=== PATIENT | male | born 1950 | race Caucasian/White ===

== ENCOUNTER 2016-07-27 13:22 | Emergency (ER) | payer OTHER ==
[~2016-07-27] VITALS: Ht 175.3 cm; Wt 81.0 kg
[~2016-07-27 13:22] MED LIST: AMLO-147 PO; ASPI-664 PO; BENA40TA41 PO; HYDR50TA3 PO
[2016-07-27 13:34] VITALS: Ht 175.3 cm; Wt 81.0 kg
--- NOTE | 2016-07-27 15:23 | ERA ---
ER Documentation Chief Complaint Date/Time DATE: 07/27/16 TIME: 15:16 Chief Complaint LT FOREARM WOUND AND PAIN WITH SWELLING FROM CAT BITE HPI This is an otherwise healthy 66-year-old male who is presenting 10 hours status post cat bite to left arm. The bite was initiated after the tech as scared after a large noise from unspecified cause. The cat is known to the patient and has not been acting differently lately. Patient states that he try to contact his PCP but they would not see him to later tonight. Patient describes the pain as 3-4 out of 10. Patient is controlled bleeding with gauze. Patient denies any medical conditions or any current medications. No recent antibiotic use or hospitalizations. Patient has no other complaints and describes no other associated manifestations. Vaccination status unknown. ROS All systems reviewed and are negative except as per history of present illness. Medications Home Meds Active Scripts Amoxicillin/Potassium Clav (Amox-Clav 500-125 mg Tablet) 500-125 mg Tab, 1 TAB PO Q8 for 7 Days, #21 TAB Prov:FARHAD JOHNS PA-C 07/27/16 Reported Medications Amlodipine Besylate* (Amlodipine Besylate*) 10 Mg Tablet, 10 MG PO DAILY, TAB 10/23/13 Benazepril Hcl* (Benazepril Hcl*) 40 Mg Tablet, 40 MG PO DAILY, TAB 10/23/13 Hydrochlorothiazide* (Hydrochlorothiazide*) 50 Mg Tab, 50 MG PO DAILY, TAB 10/23/13 Aspirin* (Aspirin* EC) 81 Mg Tablet.dr, 81 MG PO DAILY, TAB 10/23/13 Allergies Allergies: Coded Allergies: No Known Allergy (Unverified , 08/22/15) PMhx/Soc History of Surgery: Yes (RT INGUINAL HERNIA REPAIR/COLON SX FOR DIVERTICULITIS/ ) Anesthesia Reaction: No Hx Neurological Disorder: No Hx Respiratory Disorders: No Hx Psychiatric Problems: No Hx Miscellaneous Medical Probl: No Hx Alcohol Use: Yes (SOC) Hx Substance Use: No Hx Tobacco Use: No Smoking Status: Never smoker Physical Exam Vitals Vital Signs Date Time Temp Pulse Resp B/P Pulse Ox O2 Delivery O2 Flow Rate FiO2 07/27/16 13:34 98.3 80 18 135/94 98 Physical Exam Const: Well-appearing well-developed 66-year-old male in no acute distress. Head: Atraumatic Eyes: Normal Conjunctiva ENT: Normal External Ears, Nose and Mouth. Neck: Full range of motion..~ No meningismus. Resp: Clear to auscultation bilaterally Cardio: Regular rate and rhythm, no murmurs. Capillary refill below 2 seconds bilaterally. Abd: Soft, non tender, non distended. Normal bowel sounds Skin: 4 cm horizontal laceration on the lower posterior side of the left forearm. No petechiae or rashes Back: No midline or flank tenderness Ext: No cyanosis, or edema. Range of motion intact. Neur: Awake and alert. Neurovascularly intact bilaterally. Psych: Normal Mood and Affect Results 24 hrs Current Medications Medications (Trade) Dose Ordered Sig/Gustavo Route PRN Reason Start Time Stop Time Status Last Admin Dose Admin Acetaminophen (Tylenol Tab) 650 mg ONCE ONCE PO 07/27/16 15:30 07/27/16 15:31 DC 07/27/16 15:30 Diphtheria/ Tetanus/Acell Pertussis (Adacel) 0.5 ml ONCE ONCE IM* 07/27/16 16:00 07/27/16 16:01 Procedures/MDM . This is a 66-year-old male presenting with a laceration from a cat bite sustained 10 hours ago as described in history and physical examination. Patient has an unknown tetanus status and tetanus was given in the ED. Patient' s laceration is containing the epithelium and part of the epidermal tissue. Patient is neurovascularly intact and the physical examination is unremarkable other than the laceration area. There is no discharge or uncontrolled bleeding noted. Patient is neurovascularly intact after Steri-Strips are applied. There are 2 Steri-Strips applied with good approximation of the wound. I have little suspicion for neurovascular compromise or injury of tendons. Patient will be given Augmentin for appropriate microbial coverage. Patient's vitals are stable and her current condition is appropriate for discharge. Patient will be given discharge instructions with return precautions. Departure Diagnosis: Primary Impression: Bite by animal Additional Instructions: Follow up with your PCP within the next 1-3 days for a more thorough evaluation and a possible referral to a specialist. Return the the emergency department immediately if symptoms worsen or change. If you have any questions regarding medications, ask your pharmacist or us before you leave. If any adverse reactions occur while taking your medications, discontinue the treatment and return to the emergency department immediately. Take your medications as directed, and complete the entire course of treatment. FARHAD JOHNS PA-C Jul 27, 2016 15:23
[2016-07-27] MEDS ORDERED: ACETAMINOPHEN 325 MG TAB PO ONE (15:30)
[2016-07-27] MEDS ORDERED: AMOX1TAB9 PO (15:49)
[2016-07-27] MEDS ORDERED: DIPHTH/TET/ACEL PERTUSS (ADULT) 0.5 ML VIAL IM* ONE (16:00)
== END 2016-07-27 16:16 | disposition home or self-care (01) ==
LOC: FTE 13:22
DX: S51.852A Open bite of left forearm, initial encounter (principal); S51.812A Laceration without foreign body of left forearm, initial encounter; W55.01XA Bitten by cat, initial encounter; Y92.9 Unspecified place or not applicable; Z23 Encounter for immunization; Z79.82 Long term (current) use of aspirin
CPT/HCPCS: 90471; 90715

== ENCOUNTER 2016-07-28 07:21 | Emergency (ER) | payer OTHER ==
[~2016-07-28] VITALS: Ht 175.3 cm; Wt 81.0 kg
[~2016-07-28 07:21] MED LIST changes: +AMOX1TAB9 PO
[2016-07-28 07:25] VITALS: Ht 175.3 cm; Wt 81.0 kg
--- NOTE | 2016-07-28 08:30 | ERD ---
ER Documentation Chief Complaint Date/Time DATE: 07/28/16 TIME: 08:26 Chief Complaint BIB SELF FOR BLEEDING WOUND S/P GETTING BIT BY CAT , ON PLAVIX HPI 66-year-old male present ED for bleeding from the wound site. Patient was seen here yesterday for cat bite to his left forearm. The laceration was closed with Steri-Strip. Patient stated that this morning, he woke up with bleeding from the wound site. Denies increased pain or swelling. He takes Plavix daily. ROS All systems reviewed and are negative except as per history of present illness. Medications Home Meds Active Scripts Amoxicillin/Potassium Clav (Amox-Clav 500-125 mg Tablet) 500-125 mg Tab, 1 TAB PO Q8 for 7 Days, #21 TAB Prov:FARHAD JOHNS PA-C 07/27/16 Reported Medications Amlodipine Besylate* (Amlodipine Besylate*) 10 Mg Tablet, 10 MG PO DAILY, TAB 10/23/13 Benazepril Hcl* (Benazepril Hcl*) 40 Mg Tablet, 40 MG PO DAILY, TAB 10/23/13 Hydrochlorothiazide* (Hydrochlorothiazide*) 50 Mg Tab, 50 MG PO DAILY, TAB 10/23/13 Aspirin* (Aspirin* EC) 81 Mg Tablet.dr, 81 MG PO DAILY, TAB 10/23/13 Allergies Allergies: Coded Allergies: No Known Allergy (Unverified , 08/22/15) PMhx/Soc History of Surgery: Yes (RT INGUINAL HERNIA REPAIR/COLON SX FOR DIVERTICULITIS/ ) Anesthesia Reaction: No Hx Neurological Disorder: No Hx Respiratory Disorders: No Hx Psychiatric Problems: No Hx Miscellaneous Medical Probl: No Hx Alcohol Use: Yes (SOC) Hx Substance Use: No Hx Tobacco Use: No Smoking Status: Former smoker Physical Exam Vitals Vital Signs Date Time Temp Pulse Resp B/P Pulse Ox O2 Delivery O2 Flow Rate FiO2 07/28/16 07:25 97.8 89 18 170/80 96 Physical Exam General: Well-developed, well-nourished, conscious and coherent, in no distress Skin: Warm and dry without rash, good texture and turgor Head: Normocephalic without evidence of trauma Eyes: Sclera and conjunctivae normal; pupils equal, round, and reactive to light; extraocular movements are intact Neck: Supple without meningismus or adenopathy. Carotids are equal. Trachea midline. No bruits or JVD Chest: Normal AP diameter. Good expansion without retractions. Nontender. Lungs are clear to auscultate bilaterally with good tidal volume Heart: Regular rate and rhythm. No murmur, rub, or gallops heard Abdomen: Soft and nontender without masses, guarding, or rebound. Bowel sounds are active. No hepatosplenomegaly Back: Without spinal or CVA tenderness Pelvis: Nontender to palpation and stable to compression Extremities: Full range of motion. Good strength bilaterally. No clubbing, cyanosis, or edema. Peripheral pulses are intact. Sensation intact. No active bleeding present at this time at the wound site. 1+ nonpitting edema on the dorsal left hand. Neuro: Alert and oriented 4, GCS 15. Cranial nerves grossly intact. Motor and sensory exams nonfocal. Moves all extremities. Speech clear. Gait normal Procedures/MDM The wound was cleaned in the ED and re-bandaged. No active bleeding present. Wound shows no evidence of infection, foreign body, neurologic injury, vascular injury, open joint or tendon laceration. Patient appropriate for outpatient follow up. Departure Diagnosis: Primary Impression: Encounter for wound re-check Condition: Good Patient Instructions: Wound Check, Lac F/U (No Infection) Referrals: TRACI SARAVIA MD (PCP) Additional Instructions: Call your primary care doctor TOMORROW for an appointment during the next 1 WEEK.Tell the membership secretary that you were referred from this facility.See the doctor sooner or return here if your condition worsens before your appointment time. TODD KURTZ NP Jul 28, 2016 08:30
== END 2016-07-28 08:39 | disposition home or self-care (01) ==
LOC: FTE 07:21
DX: Z48.01 Encounter for change or removal of surgical wound dressing (principal); Z79.82 Long term (current) use of aspirin; Z87.891 Personal history of nicotine dependence
CPT/HCPCS: 99281